=== PATIENT | male | born 1975 | race Caucasian/White ===

== ENCOUNTER 2018-09-21 13:52 | Observation (INO) | payer OTHER ==
[~2018-09-21] VITALS: Ht 182.9 cm; Wt 113.6 kg
[2018-09-21] VITALS (8 sets, daily range): BP systolic 121–147; BP diastolic 65–91; Ht 182.9 cm; Wt 113.6 kg
--- NOTE | ~2018-09-21 | HEMODYNAMI ---
PATIENT:TAVO CARDENAS MEDICAL RECORD: [id number] : 73 LOCATION:[address] ADMISSION DATE: 09/21/18 Generatedon:09/22/20188:30 Patient name: TAVO CARDENAS Patient #: [id number] SSN: : 1975 Date of study: 09/22/2018 Page: Of Hemodynamic Procedure Report Patient Data Patient Demographics Procedure consent was obtained First Name: TAVO Gender: Male Last Name: THERESA : 1975 Patient #: [id number] Age: 43 year(s) Race: Unknown Additional ID: [id number] Contact details Address: [address] [place] [address] State: [place] City: [facility] Zip code: [address] Past Medical History Allergies: No known allergies Admission Admission Data Admission Date: 09/21/2018 Admission Time: 15:57 Room #: D2120 Lab Results Lab Result Date: 09/22/2018 Lab Result Time: 0:00 Biochemistry Name Units Result Min Max BUN mg/dl 16 --(---*)-- 7 18 Creatinine mg/dl 0.9 --(-*--)-- 0.6 1.3 CBC Name Units Result Min Max Hemoglobin g/dl 15.5 --(-*--)-- 13.5 17.5 Procedure Procedure Types Cath Procedure Diagnostic Procedure LHC C w/Coronaries Procedure Description Procedure Date Procedure Date: 09/22/2018 Procedure Start Time: 8:22 Procedure End Time: 8:29 Procedure Staff Name Function Laci Perez MD Performing Physician Tate Pederson RT Monitor Rani Saavedra RT Scrub Shanel Best RN Nurse Herbert Yoo RN Topstitcher Lockstitch Procedure Data Cath Procedure Fluoroscopy Diagnostic fluoroscopy Total fluoroscopy Time: 1.3 time: 1.3 min min Diagnostic fluoroscopy Total fluoroscopy dose: 396 dose: 396 mGy mGy Contrast Material Contrast Material Type Amount (ml) Isovue 300 39 Entry Location Entry Primary Successful Side Size Upsize Upsize Entry Closure Cortés ccessful Closure Location (Fr) 1 (Fr) 2 (Fr) Remarks Device Remarks Radial Right 6 Fr Mechanical artery Short Compression Estimated blood loss: 10 ml Diagnostic catheters Device Type Used For End Catheter Placement DIAGNOSTIC [place] 110cm 5 Procedure Fr catheter ([id number]) Procedure Complications No complications Procedure Medications Medication Administration Route Dosage 0.9% NaCl I.V. 100 ml/hr Oxygen etCO2 Nasal cannula 2 l/min Lidocaine 2% added to field 20 Heparin Flush Bag added to field 2 bags (1000units/500ml NS) Radial Cocktail added to field 1 syringe (Verapomil 2mg/Nitro 400mcg/Heparin 1500units) Versed I.V. 2 mg Fentanyl I.V. 50 mcg Versed I.V. 2 mg Fentanyl I.V. 50 mcg Hemodynamics Rest HGB: 15.5 (g/dl) Heart Rate: 60 (bpm) Pressure Samples Time Site Value (mmHg) Purpose Heart Use Rate(bpm) 8:24 LV 109/2,5 Snapshot 73 8:24 AO 95/68(79) Pullback 83 8:24 LV 99/0,1 Pullback 83 8:24 AO 101/71(84) Snapshot 89 Gradients Valve Time Site 1 Site 2 Mean SEP/DFP Peak To Heart Use (mmHg) (sec/min) Peak Rate (mmHg) (bpm) Aortic 8:24 LV AO 3 11 4 83 99/0,1 95/68(79) Calculations Valve P-P Mean Valve Index Valve Source Name Gradient Area Flow (cm2) Aortic 4 3 4 3 Snapshots Pre Cath Intra NCS Post Cath Vital Signs Time Heart Resp SPO2 etCO2 NIBP (mmHg) Rhythm Pain Sedation Rate (ipm) (%) (mmHg) Status Level (bpm) 8:10:24 74 21 100 37 156/91(130) NSR 0 (11) 10(A) , No pain 8:14:46 64 19 99 35.5 138/87(108) NSR 0 (11) 10(A) , No pain 8:19:02 62 17 99 43 134/74(96) NSR 0 (11) 10(A) , No pain 8:23:20 67 17 100 40.8 121/73(98) NSR 0 (11) 9(A) , No pain 8:27:36 75 16 98 38.5 122/71(89) NSR 0 (11) 10(A) , No pain Medications Time Medication Route Dose Verified Delivered Reason Notes Ef fectiveness by by 8:09:10 0.9% NaCl I.V. 100 Laci Shanel used for ml/hr Chris Nasir procedure MD SAINI 8:09:18 Oxygen etCO2 2 l/min Laci Shanel used for Nasal [place] procedure cannula MD SAINI 8:09:24 Lidocaine 2% added 20ml Laci Aguero for local to vial [facility] anesthetic field MD MORELOS 8:09:29 Heparin Flush added 2 bags Laci Aguero used for Bag to [facility] procedure (1000units/500ml field MD MORELOS NS) 8:09:35 Radial Cocktail added 1 Laci Laci used for (Verapomil to syringe [facility] procedure 2mg/Nitro field MD MORELOS 400mcg/Heparin 1500units) 8:20:02 Versed I.V. 2 mg Laci Shanel for [place] Nasir sedation MD SAINI 8:20:07 Fentanyl I.V. 50 mcg Laci Shanel for ChrisDeondre Best sedation MD SAINI 8:24:32 Versed I.V. 2 mg Laci Shanel for Gunn[place] Nasir sedation MD SAINI 8:24:39 Fentanyl I.V. 50 mcg Laci Shanel for ChrisDeondre Best sedation MD SAINItrack and field coach Log Time Note 7:38:05 Signed procedure consent form obtained from patient. 7:38:07 Time tracking: Regular hours (M-F 7:00 - 5:00) 7:38:11 Plan of Care:Hemodynamics will remain stable., Cardiac rhythm will remain stable., Comfort level will be maintained., Respiratory function will remain adequate., Patient/ family verbilizes understanding of procedure., Procedure tolerated without complication., Recovers from procedure without complications.. 7:38:13 Diagnostic Cath status Elective 7:44:45 H&P Date Dictated: 09/21/2018 New H&P dictated by physician.. 7:44:54 Patient allergic to No known allergies 7:45:41 Lab Result : Creatinine 0.9 mg/dl 7:45:41 Lab Result : BUN 16 mg/dl 7:45:41 Lab Result : Hemoglobin 15.5 g/dl 7:46:16 Rani Saavedra RT(R) sent for patient. Start room use. 8:00:15 Patient received from PCU to CCL 1 Alert and oriented. Tansferred to table in Supine position. 8:01:52 Warm blankets applied, and nenita hugger turned on for patient comfort. 8:01:53 Correct patient and procedure confirmed by team. 8:01:54 ECG and BP/O2 sat monitors applied to patient. 8:09:00 Vital chart was started 8:09:10 0.9% NaCl 100 ml/hr I.V. was administered by Shanel Best RN; used for procedure; 8:09:18 Oxygen 2 l/min etCO2 Nasal cannula was administered by Shanel Best RN; used for procedure; 8:09:24 Lidocaine 2% 20ml vial added to field was administered by Laci Perez MD; for local anesthetic; 8:09:29 Heparin Flush Bag (1000units/500ml NS) 2 bags added to field was administered by Laci Perez MD; used for procedure; 8:09:35 Radial Cocktail (Verapomil 2mg/Nitro 400mcg/Heparin 1500units) 1 syringe added to field was administered by Laci Perez MD; used for procedure; 8:18:17 Baseline sample Acquired. 8:18:21 Rhythm: sinus rhythm 8:18:23 Full Disclosure recording started 8:18:23 Pre-procedure instructions explained to patient. 8:18:24 Pre-op teaching completed and patient verbalized understanding. 8:18:25 Family in patients room. 8:18:27 Patient NPO since Midnight. 8:18:28 Is the patient allergic to Iodine/contrast media? No. 8:18:32 Is patient on blood thinner?No 8:18:34 Patient diabetic? Yes. 8:18:35 If diabetic: On Metformin? Yes 8:18:44 If on Metformin: Last Dose? 09/21/2018 8:18:48 Previous problem with sedation/anesthesia? No ? 8:18:49 Snore? Yes 8:18:50 Sleep apnea? No 8:18:51 Deviated septum? No 8:18:52 Opens mouth fully? Yes 8:18:53 Sticks out tongue? Yes 8:18:54 Airway obstruction? No ? 8:18:56 Dentures? No ? 8:18:59 Pre procedure: right dorsailis pedis pulse 1+ Palpable, but thready & weak; easily obliterated 8:19:02 Modified Amilcar's test Ulnar < 7 seconds 8:19:03 Patient pain scale 0/10 ?. 8:19:26 IV patent on arrival in left forearm with 0.9% NaCl at [facility]. 8:19:28 Lab results completed and on chart. 8:19:31 Right Radial & Right Groin area was prepped with chlora-prep and draped in sterile fashion 8:19:32 Alarms reviewed by R. N. 8:19:33 Sharps counted by scrub and verified by R.N. 8:19:34 --------ALL STOP TIME OUT------ 8:19:35 Final Timeout: patient, procedure, and site verified with staff and physician. All members of the team are in agreement. 8:19:37 Right Radial & Right Groin site verified by team. 8:19:40 Physical assessment completed. ASA score P 2 - A patient with mild systemic disease as per Laci Perez MD. 8:19:43 Sedation plan: IV Moderate Sedation Medication:Versed, Fentanyl 8:19:55 Use device set Radial Dx or PCI 8:19:58 Tegaderm 4 x 4 (1626W) opened to sterile field. 8:20:02 Versed 2 mg I.V. was administered by Shanel Best RN; for sedation; 8:20:02 ACIST Manifold (89877) opened to sterile field. 8:20:02 ACIST Hand Control (13770) opened to sterile field. 8:20:03 ACIST Syringe (66329) opened to sterile field. 8:20:04 Medline Cath Pack ([id number]) opened to sterile field. 8:20:04 Bag Decanter (2002S) opened to sterile field. 8:20:04 DIAGNOSTIC WIRE .035 260cm J wire (072805) opened to sterile field. 8:20:06 MBrace Wrist Support ([id number]) opened to sterile field. 8:20:07 Fentanyl 50 mcg I.V. was administered by Shanel Best RN; for sedation; 8:20:08 SHEATH 6FR Slender (40-8664) opened to sterile field. 8:20:14 Zero performed for pressure channel P1 8:22:21 Procedure started. 8:22:26 Local anesthetic to right radial artery with Lidocaine 2% by Laci Perez MD.INITIAL ACCESS ONLY 8:22:40 A 6 Fr Short sheath was inserted into the Right Radial artery 8:24:10 A DIAGNOSTIC [place] 110cm 5 Fr catheter (819865) was advanced over the wire and used for Procedure. 8:24:25 LV angiography performed. 8:24:26 LV gram done using IBANEZ 8:24:32 Versed 2 mg I.V. was administered by Shanel Best RN; for sedation; 8:24:33 EF : 55 % 8:24:39 Fentanyl 50 mcg I.V. was administered by Shanel Best RN; for sedation; 8:24:41 LV hemodynamics recorded. 8:24:43 Injector settings: Ml/sec: 7, Volume: 15, 8:25:00 LCA angiography performed. 8:25:57 RCA angiography performed. 8:26:16 Catheter removed. 8:26:19 TR BAND Standard ([id number]) opened to sterile field. 8:26:42 Sheath removed intact; hemostasis achieved with Mechanical Compression to the Right Radial artery. 8:26:45 Procedure ended.(Physican Out) 8:27:05 Fluoroscopy time 01.30 minutes. 8:27:10 Fluoroscopy dose: 396 mGy 8:27:10 Flurop Dose total: 396 8:27:15 Contrast amount:Isovue 300 39ml. 8:27:17 Sharps counted by scrub and verified by R.N. 8:27:21 TR band inflated with 10cc of air. 8:27:23 Insertion/operative site no bleeding no hematoma. 8:27:25 Post Procedure Pulses reassessed and unchanged 8:27:29 Post-procedure physical assessment completed. ASA score P 2 - A patient with mild systemic disease as per Laci Perez MD. 8:27:31 Post procedure rhythm: unchanged. 8:27:35 Estimated blood loss: 10 ml 8:27:36 Post procedure instruction explained to patient.Patient verbalizes understanding. 8:27:37 Patient needs reinforcement of post procedure teaching. 8:27:45 Procedure and supply charges have been captured, reviewed, submitted and are correct. 8:27:49 Procedure Complication : No complications 8:29:09 Vital chart was stopped 8:29:09 See physician's report for complete and final results. 8:29:20 Report given to Pre/Post Procedure Room. 8:29:31 Patient transfered to Pre/Post Procedure Room with Stretcher. 8:29:33 Procedure ended. 8:29:33 Full Disclosure recording stopped 8:29:36 End room use (Document Last) Device Usage Item Name Manufacture Quantity Catalog Hospital Part Current Minimal Lot# / Number Charge Number Stock Stock Serial# Code Tegaderm 4 3M 1 1626W [id number] 992051 490371 5 x 4 (1626W) ACIST Acist 1 47343 355043 273482 556253 5 Manifold Medical (23442) Systems Inc ACIST Hand Acist 1 81769 430935 958474 309372 5 Control Medical (53135) Systems Inc ACIST Acist 1 82625 753815 198240 285786 20 Syringe Medical (68562) Systems Inc Medline Medline 1 [id number] 137427 45788 703045 5 Cath Pack ([id number]) Bag Microtek 1 2001S 818951 66316 138587 5 Decanter Medical Inc. (2001S) DIAGNOSTIC [place] 1 010399 450342 082700 931967 30 WIRE .035 260cm J wire (934835) MBrace Advanced 1 140-0250-00 822787 61310 488601 5 Wrist Vascular Support Dynamics (006694243) SHEATH 6FR Terumo 1 [id number] 109093 561852 572912 5 Slender (80-1060) DIAGNOSTIC Terumo 1 40-5013 046670 981856 560528 5 [place] 110cm 5 Fr catheter (874504) TR BAND Terumo 1 [id number] 032688 547063 871900 40 Standard ([id number]) Signature Audit [place] Stage Time Signature Unsigned Intra-Procedure 09/22/2018 Tate Pederson 8:30:11 AM RT(R) Signatures Monitor : Tate Pederson RT Signature : Date : Time : [address] [place] [address]
[2018-09-21] MEDS ORDERED: LISINOPRIL5 MG PO (14:03)
[2018-09-21] MEDS ORDERED: GLIMEPIRIDE2 MG PO (14:04)
[2018-09-21] MEDS ORDERED: GLUCOPHAGE1000 MG PO (14:04)
[2018-09-21] MEDS ORDERED: JANUVIA100 MG PO (14:05)
[2018-09-21] MEDS ORDERED: LIPITOR20 MG PO (14:06)
[2018-09-21 14:33] LABS: BASOPHILS 0.1 % (0-2); EOSINOPHILS 1.2 % (0-7); HEMATOCRIT 42.8 % (42.0-54.0); HEMOGLOBIN 15.5 g/dL (13.5-17.5); IMMATURE GRANULOCYTES 0.1 % (0-5); LYMPHOCYTES 36.1 % (15-50); MCH 31.2 pg (26.0-34.0); MCHC 36.2 g/dL (31.0-37.0); MCV 86.1 fL (80.0-100.0); MEAN PLATELET VOLUME 10.5 fL (7.4-10.4); MONOCYTES 7.8 % (2-11); NEUTROPHILS 54.7 % (40-80); PLATELET COUNT 237 10x3/uL (130-400); RBC 4.97 10x6/uL (4.20-6.10); RDW 12.6 % (11.5-14.5); WBC 7.6 10x3/uL (4.8-10.8)
--- NOTE | 2018-09-21 14:48 | NUR ---
PT REPORTS 0/10 CP AT PRESENT TIME.
[2018-09-21 14:51] LABS: APTT 29.8 SECONDS (22.8-39.4); INR 1.18 (0.85-1.17); PROTIME 14.5 SECONDS (11.6-15.0)
[2018-09-21 14:52] LABS: D-DIMER-QUANTITATIVE < 0.27 ug/mLFEU (0.20-0.54)
[2018-09-21 15:00] LABS: ALBUMIN 4.2 g/dL (3.4-5.0); ALKALINE PHOSPHATASE 81 U/L (46-116); ALT (SGPT) 69 U/L (10-68); BILIRUBIN - TOTAL 0.63 mg/dL (0.2-1.3); CALC OSMOLALITY 283 mosm/kg (275-300); CARBON DIOXIDE 26.8 mmol/L (21.0-32.0); CHLORIDE - SERUM 101 mmol/L (98-107); CREATININE - SERUM 0.9 mg/dL (0.6-1.3); GLUCOSE 190 mg/dL (74-106); POTASSIUM - SERUM 3.8 mmol/L (3.5-5.1); SODIUM 139 mmol/L (136-145); UREA NITROGEN 16 mg/dL (7-18); eGFR NON AFRICAN AMERICAN > 90 mL/min (90-120)
[2018-09-21 15:10] LABS: CKMB 2.1 U/L (0.0-3.6); CREATINE KINASE 140 UL (21-232); MAGNESIUM - SERUM 1.5 mg/dL (1.8-2.4); TROPONIN-I < 0.017 ng/mL (0.000-0.060)
--- NOTE | 2018-09-21 18:41 | NUR ---
MAG SULFATE INFUSION COMPLETE @ 1840
--- NOTE | 2018-09-21 19:38 | NUR ---
EDGAR RG TO alisha Zee ON mED II
--- NOTE | 2018-09-21 20:34 | NUR ---
PATIENT ARRIVED FROM ER VIA WHEELCHAIR. PATIENT IS ALERT AND ORIENTED. RESPIRATIONS ARE EVEN AND UNLABORED. NO S/S OF DISTRESS. NO C/O PAIN. PATIENT DENIES NEEDS AT THIS TIME. FAMILY AT BEDSIDE. CALL LIGHT WITHIN REACH. WILL CPOC.
[2018-09-22] VITALS: BP 100/58
[2018-09-22 04:00] VITALS: BP 96/66
--- NOTE | 2018-09-22 07:51 | NUR ---
REPORT RECEIVED. WILL CONTINUE WITH POC. PT CURRENTLY LYING SEMI FOWLERS. CALL LIGHT W/I REACH. FAMILY AT BEDSIDE. RR EVEN AND UNLABORED ON RA. RECEIVED CALL TO PREOP PATIENT. PREOP MEDS ADMINISTERED. NS INFUSING @KVO VIA L.AC. NITRO PATCH APPLIED TO RIGHT WRIST. PT DENIES ANY NEEDS AT THIS TIME. WILL CTM.
[2018-09-22 07:55] VITALS: BP 120/56
--- NOTE | 2018-09-22 08:15 | NUR ---
PT TAKEN TO NET DEVELOPER WITH [facility].
--- NOTE | 2018-09-22 08:44 | NUR ---
RECEIVED ORDER THAT PT WOULD BE DISCHARGING FROM [facility] ROOM 4. NOTIFIED FAMILY AND TOOK BELONGINGS TO [facility]EL[facility] RECOVERY.
--- NOTE | 2018-09-22 08:45 | NUR ---
RECIEVED TO ROOM VIA STRETCHER FROM GRANULATOR WITH TR BAND TO R/WRIST CDI NO BLEEDING OR HEMATOMA NOTED. PATIENT CONNECTED TO MONITOR FOR OBSERVATION WITH HR 62 CHEST PAIN DENIED
--- NOTE | 2018-09-22 08:57 | NUR ---
TR BAND REMAINS CDI WITH NAUSEA DENIED PATIENT TOLERATING PO FLUIDS. VSS AND CHEST PAIN IS DENIED INSTRUCTED PATIENT TO KEEP RUE STRAIGHT NO BENDING OR FLEXING OF WRIST. CALL LIGHT IS IN REACH AND FAMILY AT BEDSIDE
--- NOTE | 2018-09-22 09:21 | NUR ---
TR BAND REMAINS INTACT TO R/WRIST WITH CAP REFILL BRISK AND FINGERS WARM TO TOUCH. VSS PATIENT TOLERATING SIPS OF WATER WITH NAUSEA DENIED
--- NOTE | 2018-09-22 09:39 | NUR ---
PATIENT RESTING QUIETLY WITH NO DISTRESS NOTED. TR BAND IS CDI WITH R/HAND WARM TO TOUCH. FAMILY PRESENT IN ROOM
--- NOTE | 2018-09-22 09:44 | NUR ---
DR MCGHEE PRESENT IN ROOM WITH PATIENT AND FAMILY
--- NOTE | 2018-09-22 10:14 | NUR ---
NO CHANGE IN ASSESSMENT PATIENT RESTING QUIETLY
--- NOTE | 2018-09-22 10:20 | NUR ---
4 CC AIR REMOVED FROM TR BAND WITH NO BLEEDING OR HEMATOMA NOTED
--- NOTE | 2018-09-22 10:34 | NUR ---
4 CC AIR REMOVED FROM TR BAND WITH NO BLEEDING OR HEMATOMA NOTED. REPOSITIONED TO SITTING WITH HOB UP 30 SANDWICH AND SODA TO BEDSIDE
--- NOTE | 2018-09-22 10:44 | NUR ---
PIV REMOVED WITH DRESSING APPLIED. PATIENT DENIED PAIN OR NEEDS UP TO GET DRESSED FOR DISCHARGE HOME
--- NOTE | 2018-09-22 10:52 | NUR ---
VERBAL AND WRITTEN DISCHARGE GONE OVER WITH PATIENT AND FAMILY. TR BAND REMOVED WITH DRESSING APPLIED.
--- NOTE | 2018-09-22 10:55 | NUR ---
TR BAND REMOVED WITH DRESSING APPLIED. PATIENT LEFT VIA WC TO PARKING FOR TRANSPORT HOME CHEST PAIN DENIED
--- NOTE | 2018-09-27 15:26 | OP ---
PATIENT NAME: TAVO CARDENAS MEDICAL RECORD: [id number] :73 LOCATION:[facility] ADMISSION DATE:09/21/18 SURGEON: KAITY MCGHEE MD DATE OF OPERATION: 09/22/2018 PROCEDURE: Left heart catheterization, selective coronary angiography, right radial approach. CATHETERS: Radial sheath, Derwood catheter. The procedure was well tolerated. The patient was returned to the [facility]. Sheath was removed. TR band was placed. FINDINGS: Left ventriculography in 30-degree IBANEZ view: Normal wall motion and normal systolic function. CORONARY ANATOMY: LEFT MAIN: Left main is free of disease. LAD: LAD has a small bridge in the mid portion, but no fixed obstructive disease. CIRCUMFLEX: Circumflex free of disease. RIGHT CORONARY ARTERY: Somewhat codominant system, large right, free of disease. IMPRESSION: No evidence for fixed obstructive coronary artery disease, normal left ventricular function. TRANSINT:[id number] Voice Confirmation ID: [id number] DOCUMENT ID: [id number] KAITY MCGHEE MD at 1526 CC: [id number] DICTATION DATE: 09/22/18 0834 MD PEDIATRIC ALLERGIST: 09/22/18 1210 DIS IN 09/22/18 [facility] [address] [place] [address]
== END 2018-09-22 10:56 | disposition home or self-care (01) ==
LOC: D.ER 13:52 → D.M2 15:57 → D.EDHOLD 15:57 → D.CLR 15:57 → OBSVTIME 15:57 → D.M2 18:28 → D.CLR 09-22 08:33
PROVIDERS: Emergency Medicine; ADMIT Internal Medicine Cardiovascular Disease
DX: I20.0 Unstable angina (principal); E11.9 Type 2 diabetes mellitus without complications; I10 Essential (primary) hypertension